=== PATIENT | male | born 1980 ===

== ENCOUNTER 2025-01-22 06:00 | Day surgery (SDC) | payer OTHER ==
[2025-01-15 11:59] LABS: URINE APPEARANCE Clear; URINE BILIRRUBIN Negative (NEGATIVE); URINE BLOOD Negative; URINE COLOR Yellow; URINE GLUCOSE Negative (NEGATIVE); URINE KETONE Negative (NEGATIVE); URINE LEUKOCYTE Negative; URINE NITRATE Negative; URINE PROTEIN Negative (NEGATIVE); URINE UROBILINOGEN 0.2 E.U./dl
[2025-01-15 12:09] VITALS: BP 143/83
[2025-01-15 12:10] LABS: BASO % 0.3 % (0.1-1.2); EOS # 0.13 (0.04-0.54); EOS % 1.9 % (0.7-7.0); LYMPH # 1.80 (1.18-3.74); LYMPH % 26.5 % (19.3-53.1); MEAN PLATELET VOLUME 9.80 fl (9.4-12.4); MONO # 0.41 (0.24-0.82); MONO % 6.0 % (4.7-12.5); NEUT # 4.41 (1.56-6.13); NEUT % 65.2 % (34.0-71.1); RED CELL DISTRIBUTION WIDTH 12.3 % (11.6-14.4)
[2025-01-15 12:17] LABS: URINE RBC 0-3 /HPF
[2025-01-15 12:18] LABS: URINE BACTERIA FEW; URINE EPITHELIAL CELLS 0-4 /HPF; URINE WBC 0-2 /hpf
[2025-01-15 12:31] LABS: INR 1.13
[2025-01-15 12:47] LABS: ALT/SGPT 33.0 U/L (12-78); AST/SGOT 15.0 U/L (15-37); BILIRUBIN TOTAL 0.41 mg/dL (0.3-1.2); BUN CREA RATIO 16.0 (7.0-25.0); CREATININE SERUM 0.87 mg/dL (0.70-1.30); GFR 94.47; GLOBULINA 3.2 G/DL (2.4-3.5); GLUCOSE FASTING 98.0 mg/dL (65-100); OSMOLALITY SERUM 285.0 MOSM/KG (275-295)
[~2025-01-22] VITALS: Ht 167.6 cm; Wt 96.2 kg
[~2025-01-22 06:00] MED LIST: NORVASC5 MG PO; PEPCID AC20 MG PO
[2025-01-22] MEDS ORDERED: CEFTRIAXONE SODIUM 2,000 MG VIAL ONE (07:05)
[2025-01-22] MEDS ORDERED: METRONIDAZOLE/SODIUM CHLORIDE 500 MG/100 ML PIGGYBACK IV ONE (07:05)
[2025-01-22] MEDS ORDERED: DIBUCAINE 30 GM TUBE ONE ×2 (07:24→07:37)
[2025-01-22] MEDS ORDERED: POVIDONE-IODINE 118 ML BOTT TOP ONE ×2 (07:24→07:37)
[2025-01-22] MEDS ORDERED: HEMOSTATIC MATRIX 1 KIT KIT TOP ONE ×2 (07:24→07:37)
[2025-01-22] MEDS ORDERED: BUPIVACAINE HCL/MPF 0.5% 30ML VIAL ONE (07:37)
[2025-01-22] MEDS ORDERED: LIDOCAINE HCL 1%/EPINEPHRINE 20ML VIAL IJ ONE (07:38)
[2025-01-22] MEDS ORDERED: TAMSULOSIN HCL 0.4 MG CAP PO ONE ×2 (09:00→12:16)
[2025-01-22] MEDS ORDERED: OXYCODONE HCL5 MG PO (11:43)
== END 2025-01-22 14:20 | disposition home or self-care (01) ==
LOC: CIR.AMB 06:00
PROVIDERS: ATTEND Surgery
DX: K64.2 Third degree hemorrhoids (principal); K64.4 Residual hemorrhoidal skin tags; K62.5 Hemorrhage of anus and rectum; K60.1 Chronic anal fissure